=== PATIENT | male | born 1950 | race Caucasian/White ===

== ENCOUNTER 2023-06-02 14:51 | Outpatient (CLI) | payer MEDICARE, BC, SELFPAY | END 2023-06-02 14:52 | disposition home or self-care (01) | PROVIDERS: Visit Provider Family Medicine | DX: E78.2 Mixed hyperlipidemia (principal); Z12.5 Encounter for screening for malignant neoplasm of prostate | CPT/HCPCS: 80048; 80061; 84153; 84460 ==

== ENCOUNTER 2024-02-08 14:41 | Emergency (ER) | payer MEDICARE, BC, SELFPAY ==
[2024-02-08 14:47] VITALS: BP 166/75; PULSE 82; RESP 20; TEMP 36.3; O2SAT 96; BMI 28.2
--- NOTE | 2024-02-08 15:04 | ED_ITS ---
HPI - General Adult General Chief complaint: GI Bleed Stated complaint: rectal bleeding Time Seen by Provider: 02/08/24 14:55 History of Present Illness HPI narrative: Patient is a 73-year-old gentleman who has had bright red blood per rectum for several weeks. He has now had increased bright red blood is he is doing a cleanse with more soup and liquid. He has had no abdominal pain no fevers no chills no night sweats no cough. Patient has had no chest pain or shortness of breath. He has no rectal pain and no loose stools. Related Data Home Medications Medication Instructions Recorded Confirmed cholecalciferol (vitamin D3) 50 50 mcg PO QDAY 03/24/23 07/12/23 mcg (2,000 unit) capsule medical cannibus Inhaled 03/24/23 07/12/23 Previous Rx's Medication Instructions Recorded tamsulosin 0.4 mg capsule (Flomax) 0.4 mg PO BID #180 caps 06/15/23 simvastatin 20 mg tablet 20 mg PO QHS #90 tabs 06/19/23 Allergies Allergy/AdvReac Type Severity Reaction Status Date / Time No Known Drug Allergies Allergy Verified 07/12/23 11:22 Review of Systems Status of ROS: Reports: 10 or more systems reviewed and unremarkable except as noted in History and below [facility] Medical History (Updated 02/08/24 @ 15:47 by Jeremy Esteves MD) Mixed hyperlipidemia ?E78.2 - Mixed hyperlipidemia (ICD-10) Vestibular migraine ?G43.809 - Other migraine, not intractable, without status migrainosus (ICD- 10) History of varicose veins ?Z86.79 - Personal history of other diseases of the circulatory system (ICD- 10) FRANCOISE (generalized anxiety disorder) ?F41.1 - Generalized anxiety disorder (ICD-10) Sensorineural hearing loss ?H90.5 - Unspecified sensorineural hearing loss (ICD-10) History of vitamin D deficiency ?Z86.39 - Personal history of other endocrine, nutritional and metabolic disease (ICD-10) Medical marijuana use ?Z79.899 - Other group home (current) drug therapy (ICD-10) Right knee pain ?M25.561 - Pain in right knee (ICD-10) Chronic nausea ?R11.0 - Nausea (ICD-10) BPH (benign prostatic hyperplasia) ?N40.0 - Benign prostatic hyperplasia without lower urinary tract symptoms (ICD-10) Obstructive sleep apnea on CPAP ?G47.33 - Obstructive sleep apnea (adult) (pediatric) (ICD-10) ?Z99.89 - Dependence on other enabling machines and devices (ICD-10) BPPV (benign paroxysmal positional vertigo) ?H81.10 - Benign paroxysmal vertigo, unspecified ear (ICD-10) Surgical History (Updated 03/25/23 @ 22:13 by Yao Handley MD) Hx of knee surgery ?Z98.890 - Other specified postprocedural states (ICD-10) History of hernia repair ?Z98.890 - Other specified postprocedural states (ICD-10) ?Z87.19 - Personal history of other diseases of the digestive system (ICD-10) Family History (Updated 03/25/23 @ 22:11 by Yao Handley MD) Father Heart disease Diabetes Son Heart disease Social History (Updated 06/02/23 @ 14:47 by Senait Love ~ A, [facility]) Narrative: , three kids, retired from [employer], non-smoker, no EtOH What is your current living situation?: I presently have a place to live Problems where you live details: No answer In the past 12 months, utilities in danger of being shut off: no In past 12 months, lack of transportation kept you from medical appts, meetings, work, or getting things needed for daily living: no In the past 12 mos, have been you worried that your food would run out before you had money to buy more?: never true In the past 12 mos, the food you bought just didn't last and you didn't have money to buy more?: never true Smoking Status: Former smoker (daily cannibus smoker) How often does anyone, including family, friends and others, physically hurt you : never How often does anyone, including family, friends and others, insult or talk down to you: rarely How often does anyone, including family, friends and others, threaten you with harm: never How often does anyone, including family, friends and others, scream or curse at you: never Little interest or pleasure in doing things: not at all Feeling down, depressed, or hopeless: several days Exam Narrative: Exam Narrative: EXAM GENERAL: Patient appears comfortable and well. EYES: No scleral icterus. LYMPH: No supraclavicular or cervical lymphadenopathy. SKIN: Visible skin seen during exam normal or with benign process only. EXT: No dependent lower extremity pedal edema. HEART: Regular rate and rhythm with no murmurs, rubs, or gallops. LUNGS: Clear to auscultation bilaterally with no crackles or wheezes. ABD: Soft, non tender, non distended. PSYCH: Good eye contact, speech is not pressured. Const: Vital Signs, click to edit/add: Vital Signs - 24 hr 02/08/24 14:47 Temperature 97.3 F L Pulse Rate [Pulse Oximeter] 82 Respiratory Rate 20 Blood Pressure [Ri ght Upper Arm] 166/75 H Pulse Oximetry 96 Oxygen Delivery Me thod Room Air Course Course ED Course: Patient seen examined. I do not believe he needs imaging. CBC coags comprehensive metabolic panel pending. Vital Signs Vital signs: Initial Vital Signs Temperature 97.3 F L 02/08/24 14:47 Temperature Source Temporal Artery Scan 02/08/24 14:47 Pulse Rate 82 02/08/24 14:47 Respiratory Rate 20 02/08/24 14:47 Blood Pressure 166/75 H 02/08/24 14:47 Blood Pressure Mean 105 02/08/24 14:47 Blood Pressure Position Sitting 02/08/24 14:47 Pulse Oximetry 96 02/08/24 14:47 Oxygen Delivery Method Room Air 02/08/24 14:47 Vital Signs Temperature 97.3 F L 02/08/24 14:47 Pulse Rate 82 02/08/24 14:47 Respiratory Rate 20 02/08/24 14:47 Blood Pressure 166/75 H 02/08/24 14:47 Pulse Oximetry 96 02/08/24 14:47 Oxygen Delivery Method Room Air 02/08/24 14:47 Temperature 97.3 F L 02/08/24 14:47 Pulse Rate 82 02/08/24 14:47 Respiratory Rate 20 02/08/24 14:47 Blood Pressure 166/75 H 02/08/24 14:47 Pulse Oximetry 96 02/08/24 14:47 Oxygen Delivery Method Room Air 02/08/24 14:47 Medical Decision Making MDM Narrative Medical decision making narrative: Patient is a 73-year-old gentleman comes in today with bright red blood per rectum that has been increasing in frequency. He did have however 2 normal bowel movements earlier today. He has no other significant symptoms. He has a normal exam and normal vital signs. His hemoglobin is 14.7 and his laboratory studies are otherwise without abnormalities. I do not believe he needs imaging with do think he has a colonoscopy in the did order that for him. This time will have him continue his current medications and follow-up as colonoscopy as well as his primary care physician. Differential diagnosis includes but not limited to rectal fissure rectal hemorrhoids colon polyps: Tumor colitis. Lab Data Labs: Lab Results 02/08/24 Range/Units 15:10 WBC 3.15 L (4.50-11.00) K/uL RBC 4.69 (4.30-5.90) m/uL Hgb 14.7 (13.5-17.5) gm/dL Hct 43.1 (37.0-53.0) % MCV 92 (80-100) fL MCH 31 (26-34) pg MCHC 34 (32-36) gm/dL RDW Coeff of Miller 13.1 (11.5-15.5) % Plt Count 178 (140-440) K/uL Neut % (Auto) 50.4 (42.0-72.0) % Lymph % (Auto) 34.3 (20-44) % [place] % (Auto) 13.7 H (0.0-11.0) % Eos % (Auto) 1.3 (0.0-7.0) % Baso % (Auto) 0.3 (0.0-3.0) % Neut # (Auto) 1.60 L (1.7-7.0) K/uL Lymph # (Auto) 1.10 (0.90-2.90) K/uL [place] # (Auto) 0.40 (0.00-0.90) K/UL Eos # (Auto) 0.00 (0.00-0.50) K/uL Baso # (Auto) 0.00 (0.00-0.30) K/uL Abs Immat Gran (auto) 0.00 (0.00-0.30) K/uL Imm/Tot Granulo (auto) 0.0 % Sodium 138 (135-149) mmol/L Potassium 4.0 (3.6-5.1) mmol/L Chloride 105 (96-114) mmol/L Albumin 4.7 (3.3-5.0) g/dL Discharge Plan Discharge Clinical Impression: BRBPR (bright red blood per rectum) Patient Disposition: Home, Self-Care Condition: Stable Instructions: Rectal Bleeding (ED) Additional Instructions: Colonoscopy has been ordered. Follow-up with your doctor within the next week. Continue current care. Keep stool soft with stool softeners. Report any change in your symptoms. Activity Level: No Restrictions Discharge Diet: Regular Prescriptions: No Action simvastatin 20 mg tablet 20 mg PO QHS Qty: 90 3RF cholecalciferol (vitamin D3) 50 mcg (2,000 unit) capsule 50 mcg PO QDAY medical cannibus Inhaled tamsulosin [Flomax] 0.4 mg capsule 0.4 mg PO BID Qty: 180 3RF Follow Up/Referrals: Yao Handley MD [Primary Care Provider] - Stand Alone Forms: [facility] Info Instructions
[2024-02-08 15:18] LABS: Basophils Percent Auto 0.3 % (0.0-3.0); Eosinophils Percent Auto 1.3 % (0.0-7.0); Hematocrit 43.1 % (37.0-53.0); Hemoglobin* 14.7 gm/dL (13.5-17.5); Lymphocytes Percent Auto 34.3 % (20-44); Mean Corpuscular HGB Conc 34 gm/dL (32-36); Mean Corpuscular Hemoglobin 31 pg (26-34); Mean Corpuscular Volume 92 fL (80-100); Monocytes Percent Auto 13.7 % (0.0-11.0); Neutrophils Percent Auto 50.4 % (42.0-72.0); Platelet Count* 178 K/uL (140-440); RDW Coefficient of Variation % 13.1 % (11.5-15.5); Red Blood Count 4.69 m/uL (4.30-5.90); White Blood Count* 3.15 K/uL (4.50-11.00)
[2024-02-08 15:31] LABS: Slide Review Reflex No
[2024-02-08 15:39] LABS: Albumin* 4.7 g/dL (3.3-5.0); Chloride* 105 mmol/L (96-114)
[2024-02-08 15:40] LABS: INR 0.97 (0.91-1.10); Prothrombin Time 13.5 Seconds; Sodium* 138 mmol/L (135-149)
[2024-02-08 15:41] LABS: Partial Thromboplastin Time* 30 Seconds (23-33)
[2024-02-08 15:42] LABS: Alkaline Phosphatase* 77 U/L (40-150); Anion Gap 9 mEq/L (7-15); Aspartate Amino Transferase* 50 U/L (12-35); Blood Urea Nitrogen* 19 mg/dL (7-30); Carbon Dioxide* 24 mmol/L (20-32); Creatinine* 0.7 mg/dL (0.5-1.5); Est. Creatinine Clearance* 74.21; Estimated Glomerular Filt Rate 96 ml/min; Total Protein* 8.5 g/dL (6.0-8.3)
[2024-02-08 15:43] LABS: Alanine Aminotransferase* 29 U/L (4-50); Calcium* 9.4 mg/dL (8.4-10.6); Glucose* 110 mg/dL (60-115)
== END 2024-02-08 15:54 | disposition home or self-care (01) ==
PROVIDERS: Emergency Provider Internal Medicine; PCP Family Medicine
DX: K62.5 Hemorrhage of anus and rectum (principal)
CPT/HCPCS: 36415; 80053; 85025; 85610; 85730; 99283

== ENCOUNTER 2024-02-13 09:47 | Outpatient (CLI) | payer MEDICARE, BC, SELFPAY ==
--- OUTSIDE RECORDS SUMMARY | 2024-02-13 09:50 | XMS_ITS | Clinical Summary ---
Author Name Unknown Organization [facility] Address [place], [place] [address] Care Team Providers Care Home Service Director Name Role Phone Kris Pearson MD Primary Care Provider [phone]- [phone] Allergies No known active allergies Medications Medication Sig Dispensed Refills Start Date End Date Status cholecalciferol (VITAMIN D) 1,000 unit capsule Take 2 capsules by mouth once daily. 0 01/29/2015 Active multivitamin (MVI) tablet Take 1 tablet by mouth once daily. 0 07/19/2018 Active medical supply, miscellaneous ([employer]PRESSION STOCKINGS)Indications :Varicose veins of both lower extremities, unspecified whether complicated For personal use. Length: calf Strength: 20-30 mmHg 2 Packet 11 10/31/2018 Active BiPapIndications:Comp marcio sleep apnea syndrome Water chamber 1 q 6 months, chin strap 1 q 6 months, nasal mask 1 q 3 months, nasal cushion 2 q month, standard tubing 1 q 3 months, headgear 1 q 6 months, non disposable filter 1 q 6 months, disposable filters 2 q month, length of need: 99 months. Frequency of use: Daily 1 Device 2 07/23/2020 Active simvastatin (ZOCOR) 20 mg tabletIndications:Mix ed hyperlipidemia Take 1 Tablet (20 mg) by mouth at bedtime. 90 Tablet 3 03/04/2022 Active omeprazole (PRILOSEC) 20 mg Delayed-Release capsuleIndications:Ch ronic nausea TAKE 1 CAPSULE(20 MG) BY MOUTH EVERY DAY BEFORE A MEAL 30 Capsule 03/06/2022 Active tamsulosin (FLOMAX) 0.4 mg capsule Take 0.4 mg by mouth. 12/18/2023 Active Active Problems Problem Noted Date Diagnosed Date Medical marijuana use 12/28/2020 Overview: Started in August 2019 for sleep apnea - feels it is beneficial Complex sleep apnea syndrome- titration 9 07/04/2019 Vestibular migraine 10/10/2016 ANGÉLICA 11/10/2015 AHI-32 11/26/2015 Routine adult health maintenance 02/25/2014 Overview: Colonoscopy 02/2014 incomplete to the ascending colon, recommend BE Mixed hyperlipidemia 10/21/2012 Vitamin D deficiency 10/21/2012 Sensorineural hearing loss, asymmetrical 012 Overview: asymmetry in left ear FRANCOISE (generalized anxiety disorder) 09/27/2011 Varicose veins 08/19/2011 Resolved Problems Problem Noted Date Diagnosed Date Resolved Date Excessive daytime sleepiness 11/23/2015 12/28/2020 BPPV (benign paroxysmal positional vertigo) 11/13/2014 04/19/2016 Rash 05/16/2011 12/28/2020 Encounters Date Type Department Care Team Description 01/31/2024 3:00 PM CDT Office Visit [facility] [address] [place] [address] Nilson Powers, DPM Consult (Right great toe ingrown nail) 01/31/2024 Travel from Last 3 Months Immunizations Name Administration Dates Next Due AMB INFLUENZA IIV3 (AGE 65+ YRS) PF (Flu Clinic Only) 08/07/2019 AMB Influenza, IIV3 (Age >=3 years)(Flu Clinic Only) 08/28/2008 Amb Influenza, Inact (High-d ose) (Flu Clinic Only) 07/11/2014 Amb Influenza, Inactivated A IIV4 (Age 65+ Years) Preserv Free 08/18/2020 Influenza A (H1N1), Inactivated 11/03/2009 Influenza, High-dose Inactivated 09/30/2017,06/23 Influenza, High-dose Quadriv alent Inactivated 08/17/2021 Influenza, IIV3 (Age 6-35 mos) 07/22/2011 Influenza, IIV3 (Age >=3 years) 08/12/20 13,11/20/2012,07/06/2011,2007,08/16/2007 Influenza, IIV4 10/10/2016 Influenza, Inactivated IIV3 (Age 65+ Years) Preserv Free 07/19/2018 Pneumococcal Poly,23-Valent (Pneumovax) 12/26/2013 Pneumococcal conj 13-Valent (Prevnar 13) 01/29/2015 Td (Age >=7 Years) 11/15/1996 Td, Preservative Free (age > = 7 Years) 09/10/2009 Tdap 11/20/2012 Zoster (Shingrix-RZV, recombinant) 11/07/2018, Zoster (Zostavax-ZVL, live) 10/03/2011 Family History Medical History Relation Name Comments Cancer-prostate Father late in life (about age 70) Diabetes Father type 2 Heart Disease Father onset 70s Other Mother multiple sclero sis Cancer-colon Neg. Diabetes Paternal Grandfather Relation Name Status Comments Father Mother Neg. Paternal Grandfather Social History Tobacco Use Types Packs/Day Years Used Date Smoking Tobacco: Former Cigarettes 1 10 0 10/23/1969 - 10/23/1979 Smokeless Tobacco: Never Tobacco Cessation:Counseling Given: Yes Alcohol Use Standard Drinks/Week Comments Not Currently 0 (1 standard drink = 0.6 oz pur e alcohol) rare PHQ-2 Answer Date Recorded PHQ-2 TOTAL SCORE 0 03/04/2022 Social Connections Answer Date Recorded Frequency of Communication with Friends and Fami ly Not on file 03/05/2023 Financial Resource Strain Answer Date R ecorded Difficulty of Paying Living Expenses 3 03/04/2022 Difficulty of Paying Living Expenses Not on file 03/04/2022 Food Insecurity Answer Date Recorded Worried About Running Out of Food in the Last Ye ar 1 03/04/2022 Transportation Needs Answer Date Record ed Lack of Transportation (Medical) 1 03/04/2022 Housing Stability Answer Date Recorded Unable to Pay for Housing in the Last Year 1 03/04/2022 Sex and Gender Information Value Date Recorded Sex Assigned at Not on file Gender Identity Not on file Sexual Orientation Not on file Obstetrics History Last Filed Vital Signs Vital Sign Reading Time Taken Comments Blood Pressure 118/67 01/31/2024 2:59 PM CDT Pulse 82 01/31/2024 2:59 PM CDT Temperature 36.6 ??C (97.9 ??F) 12/28/2020 7:09 AM CS T Respiratory Rate 20 04/20/2017 2:01 PM CDT Oxygen Saturation 96% 01/31/2024 2:59 PM CDT Inhaled Oxygen Concentration - - Weight 111.4 kg (245 lb 9.6 oz) 03/04/2022 2:10 PM CDT Height 186 cm (6' 1.23) 03/04/2022 2:10 PM CDT Body Mass Index 32.2 03/04/2022 2:10 PM CDT Plan of Treatment Health Maintenance Due Date Last Done Comments Tetanus booster 11/20/2022 11/20/2012, 08/23, 11/15/1996 BMI (ht and wt on same day) for age 18+ 03/04/2023 03/04/2022, 12/28/2020, 10/11/2019, Additional history exists Medicare Wellness for age 65+ 03/05/2023, 12/28/2020, 10/11/2019, Additional history exists Depression screening for age 12+ 03/06/2023 03/06/2022, 03/04/2022, 03/04/2022, Additional history exists Fecal testing sDNA-FIT (Cologuard) for age 45-75 01/05/2024 01/04/2021 (Verified in Care Everywhere or Patient Record) Influenza for age 65+ 06/23/2024 08/17/2021 , 08/18/2020, 08/07/2019, Additional history exists Lipids for age 45-75 03/02/2027 03/02/2022, 12/28/2020, 10/11/2019, Additional history exists Tdap Completed 11/20/2012 Pneumococcal series for age 65+ Completed 5, 12/26/2013 Hepatitis C screening for ag e 18-79 Completed 02/02/2015 Zoster (shingles) series for age 50+ Completed 11/07/2018, 08/31/2018, 10/03/2011 Fecal testing non-DNA (FIT,FOBT,iFOBT) for age 45-75 Discontinued 01/07/2021 ([facility] 04/22/2017, 04/22/2016, Additional history exists COVID-19 vaccine series Completed 07/26/20 23, 02/23/2023, 04/24/2022, Additional history exists Procedures Procedure Name Priority Date/Time Associated Diagnosis Comments LIPID PANEL Routine 03/02/2022 7:55 AM CDT Mixed hyperlipidemia OCCULT BLOOD IFOBT STOOL Routine 04/22/2017 3:30 PM CDT Screening for colon cancer ANTI HCV Routine 02/02/2015 8:43 AM CDT Need for hepatitis C screening test from Last 3 Months or Most Recently Relevant to Health Maintenance Results * (ABNORMAL) LIPID PANEL (03/02/2022 7:55 AM CDT) CHOLESTEROL,TOTAL 146 100 - 199 mg/dL 03/02/2022 5:20 PM CDT [facility] TRIGLYCERIDES 163(H) <150 mg/dL 03/02/2022 5:20 PM CDT [facility] HDL CHOLESTEROL 38(L) >40 mg/dL 5:20 PM CDT [facility] NON-HDL CHOLESTEROL 108 <145 mg/dl 03/02/2022 5:20 PM CDT [facility] CHOL/HDL RATIO 3.84 <4.50 03/02/2022 5:20 PM CDT [facility] LDL CHOLESTEROL 75 <=130 mg/dL 03/02/2022 5:20 PM CDT [facility] VLDL CHOLESTEROL 33(H) <=30 mg/dL 03/02/2022 5:20 PM CDT [facility] PROVIDER ORDERED STATUS RANDOM 03/02/2022 5:20 PM CDT [facility] Blood BLOOD SPECIMEN / Unknown Venipuncture / Unknown 03/02/2022 7:55 AM CDT 03/02/2022 7:59 AM CDT Kris Pearson MD [facility] [address] [place] [address], * OCCULT BLOOD IFOBT STOOL (04/22/2017 3:30 PM CDT) STOOL BLOOD ,IFOBT Negative Negative 04/27/2017 10:27 AM CDT [facility] Stool STOOL SPECIMEN / Unknown Non-Blood / Unknown 04/22/2017 3:30 PM CDT 04/27/2017 10:03 AM CDT Ori Aceves DO LABORATORY [facility] [address] [place] [address] * ANTI HCV (02/02/2015 8:43 AM CDT) HEPATITIS C ANTIBODY Non-Reacti ve Non-Reacti ve 02/02/2015 2:05 PM CDT [facility] Blood specimen (specimen) BLOOD SPECIMEN / Unknown Venipuncture / Unknown 02/02/2015 8:43 AM CDT 02/02/2015 8:43 AM CDT Narrative [facility] - 02/02/2015 2:05 PM CDT Antibodies to HCV not detected; does not exclude the possibility of exposure to HCV. Henry Irizarry MD SEND OUTS [facility] [address] [place] [address], from Last 3 Months or Most Recently Relevant to Health Maintenance Care Teams Home Service Director Relationship Specialty Start Date End Date Kris Pearson MD [address] [place] [address] PCP - General Family Practice 11/09/20
--- NOTE | 2024-02-13 11:53 | W.ANESCHARGE ---
Anesthesia Charges Start Date/Time Anesthesia Start Date: 02/13/24 Anesthesia Start Time: 11:16 Stop Date/Time Anesthesia Stop Date: 02/13/24 Anesthesia Stop Time: 11:57 Summary Extremes of Age - Over 70 or under 1: MDA
--- NOTE | 2024-02-13 12:01 | P.ANES_ITS ---
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
== END 2024-02-13 09:48 | disposition home or self-care (01) ==
LOC: OP CLINIC 09:48
PROVIDERS: PCP Family Medicine; Visit Provider Surgery
DX: K92.1 Melena (principal); K64.8 Other hemorrhoids; K57.30 Diverticulosis of large intestine without perforation or abscess without bleeding
CPT/HCPCS: 00811; 00812; 45378; 99100; J2704

== ENCOUNTER 2024-06-04 13:50 | Outpatient (CLI) | payer MEDICARE, BC, SELFPAY ==
--- OUTSIDE RECORDS SUMMARY | 2024-06-04 13:59 | XMS_ITS | Clinical Summary ---
Author Organization [facility] Address [place], [place] [address] Care Team Providers Care Trial Paralegal Name Role Phone Kris Pearson MD Primary Care Provider +1- [phone] Allergies No known active allergies Medications Medication [...] positional vertigo) 11/13/2014 04/19/2016 Rash 05/16/2011 12/28/2020 Immunizations Name Administration Dates Next Due AMB [...] 03/06/2023 03/06/2022, 03/04/2022, 03/04/2022, Additional history exists COVID-19 vaccine series (2022- season) 2023 07/26/2023, 02/23/2023, 04/24/2022, Additional history exists Fecal testing sDNA-FIT (Cologuard) [...] for age 45-75 Discontinued 01/07/2021 (Completed o [facility]), 04/22/2017, 04/22/2016, Additional history exists Procedures Procedure Name Priority [...] mg/dL 03/02/2022 5:20 PM CDT [facility] TRIGLYCERIDES 163(H) <150 mg/dL 03/02/2022 5:20 PM CDT [facility] HDL CHOLESTEROL 38(L) >40 mg/dL 5:20 PM CDT [facility] NON-HDL CHOLESTEROL 108 <145 mg/dl 03/02/2022 5:20 PM CDT [facility] CHOL/HDL RATIO 3.84 <4.50 03/02/2022 5:20 PM CDT [facility] LDL CHOLESTEROL 75 <=130 mg/dL 03/02/2022 5:20 PM CDT [facility] VLDL CHOLESTEROL 33(H) <=30 mg/dL 03/02/2022 5:20 PM CDT [facility] PROVIDER ORDERED STATUS RANDOM 03/02/2022 5:20 PM CDT [facility] Blood BLOOD SPECIMEN / Unknown Venipuncture / Unknown 03/02/2022 7:55 AM CDT 03/02/2022 7:59 AM CDT Kris Pearson MD CHEMISTRY [facility] [address] [place] [address], * OCCULT BLOOD IFOBT STOOL (04/22/2017 3:30 PM CDT) STOOL BLOOD ,IFOBT Negative Negative 04/27/2017 10:27 AM CDT [facility] Stool STOOL SPECIMEN / Unknown Non-Blood / Unknown 04/22/2017 3:30 PM CDT 04/27/2017 10:03 AM CDT Ori Aceves DO LABORATORY [facility] [address] [place] [address] * ANTI HCV (02/02/2015 8:43 AM CDT) HEPATITIS C ANTIBODY Non-Reacti ve Non-Reacti ve 02/02/2015 2:05 PM CDT [facility] Blood specimen (specimen) BLOOD SPECIMEN / Unknown Venipuncture / Unknown 02/02/2015 8:43 AM CDT 02/02/2015 8:43 AM CDT Narrative [facility] - 02/02/2015 2:05 PM CDT Antibodies to HCV not detected; does not exclude the possibility of exposure to HCV. Henry Irizarry MD SEND OUTS [facility] [address] [place] [address], from Last 3 Months or Most Recently Relevant to Health Maintenance Care Teams Trial Paralegal Relationship Specialty Start Date End Date Kris Pearson MD [address] [place] [address] PCP - General Family Practice 11/09/20
== END 2024-06-04 13:51 | disposition home or self-care (01) ==
PROVIDERS: PCP Family Medicine; Visit Provider Family Medicine
DX: E78.2 Mixed hyperlipidemia (principal); Z12.5 Encounter for screening for malignant neoplasm of prostate
CPT/HCPCS: 80061; G0103

== ENCOUNTER 2025-06-10 16:30 | Outpatient (CLI) | payer MEDICARE, BC, SELFPAY | END 2025-06-10 16:31 | disposition home or self-care (01) | PROVIDERS: PCP Family Medicine; Visit Provider Family Medicine | DX: E78.2 Mixed hyperlipidemia (principal); E55.9 Vitamin D deficiency, unspecified; Z12.5 Encounter for screening for malignant neoplasm of prostate | CPT/HCPCS: 80048; 80061; 84460; 85025; G0103 ==